=== PATIENT | male | born 1995 | race Caucasian/White ===

== ENCOUNTER 2024-12-04 09:57 | Emergency (ER) | payer MEDICAID, SELFPAY ==
[2024-12-04 10:11] VITALS: BP 129/64; PULSE 86; RESP 16; TEMP 36.8; O2SAT 100; BMI 25.8
--- NOTE | 2024-12-04 10:26 | ED_ITS ---
HPI - Skin/Abscess/Foreign Bdy General: Chief complaint: Skin/Abscess/Foreign Body Stated complaint: Center/Upper back Painful Bumps Time Seen by Provider: 12/04/24 10:12 History of Present Illness: 29-year-old male presents emergency room with complaints of cystic acne that is causing some discomfort he has multiple cysts on his back and his 2 in particular that have been a problem some for a while he started on Keflex by his primary care doctor. He has a history of diabetes he denies using any steroids. No fever sweats or chills. He has tried to manipulate these to drain at home. Related Data Home Medications ?Medication ?Instructions ?Recorded ?Confirmed glucagon 1 mg solution for 1 mg IM PRN PRN low blood s ugar 12/04/24 12/04/24 injection (Glucagon Emergency Kit) insulin lispro 100 unit/mL See Rx Instructions .Route .COMPLEX 12/04/24 12/04/24 subcutaneous solution Allergies Allergy/AdvReac Type Severity Reaction Status Date / Time Penicillins Allergy Unknown Verified 12/04/24 10:13 Procedures Abscess I/D Site: back Local Anesthetic: lidocaine 1% Amount of anesthesia used (mL): 6 Technique: incised with #11 blade Amount of fluid expressed (mL): 3 Irrigation: Yes Packing used?: none Course Vital Signs: Vital signs: Vital Signs Temperature 98.2 F 12/04/24 10:11 Pulse Rate 86 12/04/24 10:11 Respiratory Rate 16 12/04/24 10:11 Blood Pressure 129/64 12/04/24 10:11 Pulse Oximetry 100 12/04/24 10:11 Oxygen Delivery Me thod Room Air 12/04/24 10:11 MDM - Skin/Abscess/Foreign Bdy Medicial Decision Making 2 areas of cystic acne incised 1 at the level of T3 for the other at the L1-2 level. Both were anesthetized locally and then incised with an 11 blade expressed small amount of purulent fluid and fluid about 3 mL out of each. It was cultured and aggressively irrigated patient tolerated well. There is no localized erythema or inflammation and minimal purulent material was drained did not start on antibiotics at this time will follow-up with cultures both wounds were cultured. Medical Records I reviewed the patient's medical records. Lab Data I reviewed the patient's lab results. No radiology studies performed this visit Discharge Plan Discharge Patient Disposition: Home Clinical Impression: Cystic acne vulgaris Condition: Stable Prescriptions: No Action insulin lispro 100 unit/mL solution See Rx Instructions .ROUTE .COMPLEX Rx Instructions: USE DIRECTED with insulin pump. DO NOT EXCEED 100 UNITS DAILY. Glucagon Emergency Kit (human) 1 mg recon soln 1 mg IM PRN PRN (Reason: low blood sugar) Discharge Orders: Discharge ED (Routine); Ordered 12/04/24 Ordered By: Oscar Nguyễn Patient Instructions: Opioid Safety, Pain Management, Patient Portal & Heather Instructions Activity Restrictions/Additional Instructions: Thank you [facility] needs today. It is very important that you follow up as instructed or that you return to the Emergency Department should you have concerns or if your condition changes or worsens in any way. Emergency department visits are focused on emergent conditions, in some cases you may require further evaluation on an outpatient basis. You were seen in the emergency room with complaints of sores on your back from cystic acne. He was identified to the or most problem some for you. These were incised and drained. There was not a significant amount of fluid in them that were irrigated out. Recommend you apply topical antibiotic ointment to the wound and keep covered until healed follow-up with your primary care doctor (Please note that included in your discharge packet is information concerning opioid safety and pain management. This information is given to all patients were discharged from the ER regardless of their discharge diagnosis or the medicines they usually take or are prescribed.) Print Language: [place] Coding Level of Care Code ED Tool Design Engineer for Alexandra Faye
[2024-12-04] MEDS: lidocaine-epi 1% 20 mL INJ 10 ML INJECTION (10:40)
--- NOTE | 2024-12-04 10:40 | PC.NURSE ---
lidocaine with epi scanned and given to provider for administration.
[2024-12-04] MEDS: bacitracin ointment Pkt 2 EACH TOPICAL (10:59)
== END 2024-12-04 11:04 | disposition home or self-care (01) ==
PROVIDERS: Emergency Provider Family Medicine
DX: L70.0 Acne vulgaris (principal)
CPT/HCPCS: 10060; 87070; 99283; J9999